=== PATIENT | female | born 1950 ===

== ENCOUNTER 2018-11-26 13:26 | Inpatient (IN) ==
[2018-11-26] MEDS ORDERED: IPRATROPIUM/ALBUTEROL 3 ML AMPUL.NEB NEB ONE ×2 (13:54→15:44)
[2018-11-26] MEDS ORDERED: POTASSIUM CHLORIDE 20 MEQ, MAGNESIUM SULFATE 16.24 MEQ, THIAMINE 100 MG, MVI, ADULT NO.... IV SCH (14:00)
[2018-11-26] MEDS ORDERED: POTASSIUM CHLORIDE 20 MEQ in DEXTROSE 5% IN WATER 250 ML IV ONE (14:24)
--- NOTE | 2018-11-26 14:25 | Emergency Department Note ---
SOB HPI - General Chief Complaint: Shortness of Breath/Dyspnea Stated Complaint: sob, failure to thrive Time Seen by Provider: 11/26/18 13:34 Source: patient Mode of arrival: ambulatory Limitations: no limitations - History of Present Illness 68-year-old female was brought in by her daughters for facial and lip cyanosis with hypoxia this morning down into the 70s. She is a alcoholic and smoker who was recently brought to [facility] after her . She has been accompanying her daughter that lives in [place] and they are visiting the daughter that lives here in [place]. She last drank alcohol and had a beer 3 days ago-she does not want to quit drinking or smoking. The daughters note that she has been hallucinating and had no appetite. She has been lethargic and somnolent. They deny fever chills nausea vomiting. She has chronic diarrhea. No seizure activity although she does have a seizure history Most history is from her daughters although patient does not deny any event and will answer questions of asked directly At this time the patient is a full code although she does not want prolonged life support. She does have a living will/POSLT form - Related Data Home Medications Medication Instructions Recorded Confirmed Aspirin [Phill Chewable Aspirin] 81 mg PO DAILY 11/26/18 11/26/18 Black Cohosh 40 mg PO DAILY 11/26/18 11/26/18 Citalopram [Celexa] 20 mg PO DAILY 11/26/18 11/26/18 Lisinopril [Zestril] 40 mg PO DAILY 11/26/18 11/26/18 Metoprolol Tartrate [Lopressor] 50 mg PO BID 11/26/18 11/26/18 Mirabegron [Myrbetriq] 25 mg PO DAILY 11/26/18 11/26/18 Ranitidine HCl [Acid Refiner Operator] 150 mg PO BID 11/26/18 11/26/18 Allergies Allergy/AdvReac Type Severity Reaction Status Date / Time aspirin AdvReac Intermediate Anaphylaxis Verified 11/26/18 18:51 Review of Systems All systems ED: reviewed and negative except as stated. Past Medical History - Past Medical History Attestation: Yes: The following information was validated with the patient. Medical history: Reports: hypertension, seizures, other (Brain aneurysms which were diagnosed at [facility] in [place], patient declined treatment) Surgical history ED: Reports: other (Chronic diarrhea status post several colon surgeries; ear surgery) - Social History smoking status: Current some day smoker Alcohol use: Reports: Frequently, Daily, Heavy Last drink: days (ago) Physical Exam Very thin cachectic female appearing much older than stated age. Normocephalic atraumatic. Conjunctive are clear sclerae white and anicteric. No nasal discharge or congestion. Oropharynx is pink and moist. Neck is supple without lymphadenopathy thyromegaly. Heart is mildly tachycardic with normal rhythm no murmur appreciated. She is having difficulty moving air, tight breath sounds. Even after breathing treatment she is still having difficulty and requiring significant oxygen up to 15 L. Despite her size I am unable to do hear her breath sounds well especially on the right. Abdomen soft nontender nondistended. No pedal edema. +2 radial pulse. Patient is alert oriented able to answer questions Limitations: no limitations Course Vital Signs Temperature 97.0 F 11/26/18 13:29 Pulse Rate 76 11/26/18 13:29 Respiratory Rate 32 H 11/26/18 13:29 Blood Pressure 97/87 11/26/18 13:29 Pulse Oximetry (%) 71 L 11/26/18 13:29 Temperature 99.8 F H 11/27/18 04:01 Pulse Rate 76 11/27/18 07:20 Respiratory Rate 20 11/27/18 07:20 Blood Pressure 146/80 11/27/18 06:01 Pulse Oximetry (%) 92 11/27/18 06:48 Shortness of Breath/Dyspnea - Lab Data Lab results reviewed: Yes I reviewed the patient's lab results. Result diagrams: 11/27/18 03:50 11/27/18 03:50 Lab Results 11/26/18 11/26/18 11/26/18 Range/Units 14:19 14:19 14:19 WBC 6.9 (4.5-11.0) K/mcL RBC 4.50 (4.00-5.20) M/mcL Hgb 14.3 (12.0-15.0) g/dL Hct 43.2 (36.0-48.0) % POC Hct 46.0 (36.0-48.0) % MCV 96.0 (80.0-100.0) fL MCH 31.7 (26.0-34.0) pg MCHC 33.0 (31.0-36.0) g/dL RDW 16.4 H (11.5-14.5) % Plt Count 167 (140-440) K/mcL MPV 9.5 (7.4-10.4) fL Gran % 69.4 (38.0-78.0) % Lymph % (Auto) 8.2 L (15.5-49.0) % Angelina % (Auto) 22.2 H (1.0-12.0) % Eos % (Auto) 0.2 (0.0-7.0) % Baso % (Auto) 0 (0.0-2.0) % Gran # 4.8 (1.8-8.0) K/mcL Lymph # (Auto) 0.6 L (1.5-4.8) K/mcL Angelina # (Auto) 1.5 H (0.1-0.9) K/mcL Eos # (Auto) 0 (0.0-0.7) K/mcL Baso # (Auto) 0 (0.0-0.3) K/mcL Differential Comment VBG Lactic Acid (0.5-2.0) mmol/L POC Sodium 130 L (133-145) mmol/L Sodium 131 L (133-145) mmol/L POC Potassium 2.7 L* (3.3-5.1) mmol/L Potassium 2.9 L* (3.3-5.1) mmol/L POC Chloride 88 L (96-108) mmol/L Chloride 88 L (96-108) mmol/L Carbon Dioxide 29 (22-30) mmol/L POC Total CO2 30 (22-30) mmol/L Anion Gap 14.0 (8-16) POC BUN 43 H (8-23) mg/dl BUN 52 H (8-23) mg/dl Creatinine 1.4 H (0.6-1.1) mg/dl POC Creatinine 1.6 H (0.6-1.1) mg/dl GFR Calculation 38 Glucose 95 (70-105) mg/dL POC Glucose 96 (70-105) mg/dL Calcium 9.2 (8.6-10.4) mg/dl POC WB Ioniz Calcium 1.12 L (1.16-1.32) mmol/L Magnesium 2.0 (1.6-2.5) mg/dL Total Bilirubin 0.4 (0.0-1.0) mg/dL AST 28 (0-37) U/l ALT 14 (0-40) U/l Alkaline Phosphatase 72 (39-117) U/L Troponin T < 0.01 (0-0.03) ng/ml Total Protein 6.9 (5.9-8.4) gm/dL Albumin 2.8 L (3.2-5.2) gm/dL Globulin 4.1 H (2.2-3.7) gm/dL Albumin/Globulin Ratio 0.7 L (1.0-2.3) Urine Color Urine Appearance Urine pH (5.0-9.0) Ur Specific [place] (1.000-1.035) Urine Protein (NEG) mg/dL Urine Glucose (UA) (NEG) mg/dL Urine Ketones (NEG) mg/dL Urine Occult Blood (<0.03) mg/dL Urine Nitrate (NEG) Urine Bilirubin (NEG) mg/dL Urine Urobilinogen (NEG) mg/dL Ur Leukocyte Esterase (NEG) /uL Urine RBC (0-1) /hpf Urine WBC (0-4) /hpf Ur Squamous Epith Cells (0-4) /hpf Amorphous Crystals (0) /hpf Urine Bacteria (0) /hpf Hyaline Casts (0-2) /lpf Granular Casts (0) /lpf Urine Mucus (0) /hpf Ur Culture Indicated? Mycoplasma pneumon IgM (NEGATIVE) Ur Strep pneumoniae Ag (NEGATIVE) 11/26/18 11/26/18 11/26/18 Range/Units 14:20 15:46 15:46 WBC (4.5-11.0) K/mcL RBC (4.00-5.20) M/mcL Hgb (12.0-15.0) g/dL Hct (36.0-48.0) % POC Hct (36.0-48.0) % MCV (80.0-100.0) fL MCH (26.0-34.0) pg MCHC (31.0-36.0) g/dL RDW (11.5-14.5) % Plt Count (140-440) K/mcL MPV (7.4-10.4) fL Gran % (38.0-78.0) % Lymph % (Auto) (15.5-49.0) % Angelina % (Auto) (1.0-12.0) % Eos % (Auto) (0.0-7.0) % Baso % (Auto) (0.0-2.0) % Gran # (1.8-8.0) K/mcL Lymph # (Auto) (1.5-4.8) K/mcL Angelina # (Auto) (0.1-0.9) K/mcL Eos # (Auto) (0.0-0.7) K/mcL Baso # (Auto) (0.0-0.3) K/mcL Differential Comment VBG Lactic Acid 1.2 (0.5-2.0) mmol/L POC Sodium (133-145) mmol/L Sodium (133-145) mmol/L POC Potassium (3.3-5.1) mmol/L Potassium (3.3-5.1) mmol/L POC Chloride (96-108) mmol/L Chloride (96-108) mmol/L Carbon Dioxide (22-30) mmol/L POC Total CO2 (22-30) mmol/L Anion Gap (8-16) POC BUN (8-23) mg/dl BUN (8-23) mg/dl Creatinine (0.6-1.1) mg/dl POC Creatinine (0.6-1.1) mg/dl GFR Calculation Glucose (70-105) mg/dL POC Glucose (70-105) mg/dL Calcium (8.6-10.4) mg/dl POC WB Ioniz Calcium (1.16-1.32) mmol/L Magnesium (1.6-2.5) mg/dL Total Bilirubin (0.0-1.0) mg/dL AST (0-37) U/l ALT (0-40) U/l Alkaline Phosphatase (39-117) U/L Troponin T (0-0.03) ng/ml Total Protein (5.9-8.4) gm/dL Albumin (3.2-5.2) gm/dL Globulin (2.2-3.7) gm/dL Albumin/Globulin Ratio (1.0-2.3) Urine Color Yellow Urine Appearance Clear Urine pH 6.0 (5.0-9.0) Ur Specific [place] 1.018 (1.000-1.035) Urine Protein 30 A (NEG) mg/dL Urine Glucose (UA) Negative (NEG) mg/dL Urine Ketones Neg (NEG) mg/dL Urine Occult Blood 0.2 A (<0.03) mg/dL Urine Nitrate Neg (NEG) Urine Bilirubin Neg (NEG) mg/dL Urine Urobilinogen Neg (NEG) mg/dL Ur Leukocyte Esterase Neg (NEG) /uL Urine RBC 6 H (0-1) /hpf Urine WBC 2 (0-4) /hpf Ur Squamous Epith Cells 1 (0-4) /hpf Amorphous Crystals Few A (0) /hpf Urine Bacteria 0 (0) /hpf Hyaline Casts 2 (0-2) /lpf Granular Casts 3 H (0) /lpf Urine Mucus Few (0) /hpf Ur Culture Indicated? No Mycoplasma pneumon IgM Negative (NEGATIVE) Ur Strep pneumoniae Ag (NEGATIVE) 11/26/18 Range/Units 15:46 WBC (4.5-11.0) K/mcL RBC (4.00-5.20) M/mcL Hgb (12.0-15.0) g/dL Hct (36.0-48.0) % POC Hct (36.0-48.0) % MCV (80.0-100.0) fL MCH (26.0-34.0) pg MCHC (31.0-36.0) g/dL RDW (11.5-14.5) % Plt Count (140-440) K/mcL MPV (7.4-10.4) fL Gran % (38.0-78.0) % Lymph % (Auto) (15.5-49.0) % Angelina % (Auto) (1.0-12.0) % Eos % (Auto) (0.0-7.0) % Baso % (Auto) (0.0-2.0) % Gran # (1.8-8.0) K/mcL Lymph # (Auto) (1.5-4.8) K/mcL Angelina # (Auto) (0.1-0.9) K/mcL Eos # (Auto) (0.0-0.7) K/mcL Baso # (Auto) (0.0-0.3) K/mcL Differential Comment VBG Lactic Acid (0.5-2.0) mmol/L POC Sodium (133-145) mmol/L Sodium (133-145) mmol/L POC Potassium (3.3-5.1) mmol/L Potassium (3.3-5.1) mmol/L POC Chloride (96-108) mmol/L Chloride (96-108) mmol/L Carbon Dioxide (22-30) mmol/L POC Total CO2 (22-30) mmol/L Anion Gap (8-16) POC BUN (8-23) mg/dl BUN (8-23) mg/dl Creatinine (0.6-1.1) mg/dl POC Creatinine (0.6-1.1) mg/dl GFR Calculation Glucose (70-105) mg/dL POC Glucose (70-105) mg/dL Calcium (8.6-10.4) mg/dl POC WB Ioniz Calcium (1.16-1.32) mmol/L Magnesium (1.6-2.5) mg/dL Total Bilirubin (0.0-1.0) mg/dL AST (0-37) U/l ALT (0-40) U/l Alkaline Phosphatase (39-117) U/L Troponin T (0-0.03) ng/ml Total Protein (5.9-8.4) gm/dL Albumin (3.2-5.2) gm/dL Globulin (2.2-3.7) gm/dL Albumin/Globulin Ratio (1.0-2.3) Urine Color Urine Appearance Urine pH (5.0-9.0) Ur Specific [place] (1.000-1.035) Urine Protein (NEG) mg/dL Urine Glucose (UA) (NEG) mg/dL Urine Ketones (NEG) mg/dL Urine Occult Blood (<0.03) mg/dL Urine Nitrate (NEG) Urine Bilirubin (NEG) mg/dL Urine Urobilinogen (NEG) mg/dL Ur Leukocyte Esterase (NEG) /uL Urine RBC (0-1) /hpf Urine WBC (0-4) /hpf Ur Squamous Epith Cells (0-4) /hpf Amorphous Crystals (0) /hpf Urine Bacteria (0) /hpf Hyaline Casts (0-2) /lpf Granular Casts (0) /lpf Urine Mucus (0) /hpf Ur Culture Indicated? Mycoplasma pneumon IgM (NEGATIVE) Ur Strep pneumoniae Ag Negative (NEGATIVE) Arterial blood gases pH is 7.43 PCO2 53 PO2 of 82 on 15 L nonrebreather mask Flu swab was negative - Radiology Data Radiology results reviewed: Yes I reviewed the patient's radiology results. Chest x-ray shows massive right-sided infiltrate encompassing entire right side. CT scan without contrast was ordered without contrast secondary to concerns for elevated creatinine. She does not have a history of kidney disease. Anyways CT scan showed patchy infiltrate with right-sided aspiration pneumonia versus ARDS - EKG Data EKG attestation: Yes I reviewed and interpreted this EKG. EKG results narrative: EKG was done which shows a rate of 70 low voltage leads consistent with her pulmonary disease. I do not see evidence of ischemia. A lot of artifact limits utility of this study Critical Care Time Critical Care Time: Yes Attestation: 30 minutes critical care time which did not include initial evaluation and management nor procedures. I was immediately available to this patient entire time of her hospital stay. My critical care time includes reevaluation, discussion with family, care coordination and documentation Disposition Pt seen by HOTHOUSE WORKER/PA only: No Clinical Impression: Hypokalemia Respiratory failure with hypoxia and hypercapnia Qualifiers: Chronicity: acute Qualified Code(s): J96.01 - Acute respiratory failure with hypoxia Kidney failure Qualifiers: Renal failure chronicity: unspecified chronicity Qualified Code(s): N19 - Unspecified kidney failure Pneumonia Qualifiers: Pneumonia type: due to unspecified organism Laterality: right Lung location: unspecified part of lung Qualified Code(s): J18.9 - Pneumonia, unspecified organism Summary: Patient was initially started on oxygen and workup initiated She is having significant trouble breathing suspect pneumonia. Chest x-ray confirms and CT to follow but this is limited by her elevated creatinine. She does not have a history of kidney disease this is likely secondary to dehydrat ion. Because of her alcoholism concern for DTs also comes in to play. She does seem relatively fragile IV fluids were started along with antibiotics after getting cultures. I was able to turn her oxygen levels down to 5 L and saturations remained in the 90s After getting workup I discussed the case with Dr. Little, the hospitalist who agreed to accept the patient for further care and evaluation in the ICU. I did discuss with the patient the possibility of having to intubate her or use BiPAP and she was agreeable to this-she is critical ill Disposition: Xfer As Inpt ([facility]) Condition: Fair
[2018-11-26] MEDS ORDERED: [UNRECOGNIZED DRUG - REMARK] IV SCH ×2 (14:30→18:31)
[2018-11-26 15:28] LABS: ALT/SGPT 14 U/l (0-40); Albumin 2.8 gm/dL (3.2-5.2); Albumin/Globulin Ratio 0.7 (1.0-2.3); Alkaline Phosphatase 72 U/L (39-117); Blood Urea Nitrogen 52 mg/dl (8-23)
[2018-11-26 15:34] LABS: Basophils # (Auto) 0 K/mcL (0.0-0.3); Basophils % (Auto) 0 % (0.0-2.0); Eosinophils # (Auto) 0 K/mcL (0.0-0.7); Eosinophils % (Auto) 0.2 % (0.0-7.0); Granulocytes % (Auto) 69.4 % (38.0-78.0); Lymphocytes # (Auto) 0.6 K/mcL (1.5-4.8); Lymphocytes % (Auto) 8.2 % (15.5-49.0); Monocytes # (Auto) 1.5 K/mcL (0.1-0.9); Monocytes % (Auto) 22.2 % (1.0-12.0); Platelet Count 167 K/mcL (140-440); Red Cell Distribution Width 16.4 % (11.5-14.5)
[2018-11-26] MEDS ORDERED: PIPERACILLIN SODIUM/TAZOBACTAM 3.375 GM in DEXTROSE 5% IN WATER 50 ML IV ONE (15:34)
[2018-11-26] MEDS ORDERED: 0.9 % SODIUM CHLORIDE 1,000 ML IV ONE ×2 (15:43→16:14)
[2018-11-26] MEDS ORDERED: methylPREDNISolone SOD SUCC 125 MG/2 ML VIAL IV ONE (16:23)
[2018-11-26 16:36] LABS: Appearance,Urine CLEAR; Bacteria,Urine 0 /hpf (0); Bilirubin,Urine NEG (NEG); Color,Urine YELLOW; Glucose,Urine (UA) NEGATIVE (NEG); Leukocyte Esterase,Urine NEG /uL (NEG); Mucus,Urine FEW /hpf (0); Protein,Urine 30 mg/dL (NEG); Specific Gravity,Urine 1.018 (1.000-1.035); Urine Amorphous Crystals FEW /hpf (0); Urine Blood 0.2 mg/dL (<0.03); Urine Granular Cast 3 /lpf (0); Urine Hyaline Cast 2 /lpf (0-2); Urine RBC 6 /hpf (0-1); Urine Squamous Epithelial Cell 1 /hpf (0-4); Urine WBC 2 /hpf (0-4); Urobilinogen,Urine NEG (NEG)
--- NOTE | 2018-11-26 17:33 | Cat Scan Report ---
CLINICAL INFORMATION: Shortness of breath cough. History of smoking COMPARISON: None TECHNIQUE: 0.625 mm axial slices were obtained from the lung apices through the bases without intravenous contrast. 2.5 mm Sagittal, coronal and axial reformatted images were processed and reviewed at bone, lung and soft tissue windows. 7 mm axial MIP images were also reconstructed to optimize pulmonary nodule detection.The exam was performed using radiation dose optimization techniques including, but not limited to, automated exposure control, adjustment of the mA and/or kV according to patient size and use of iterative reconstruction technique. FINDINGS: Pulmonary parenchymal windows show large patchy alveolar infiltrate in the right lower lobe with moderate patchy infiltrates in the right middle, posterior segment right upper lobe and smaller patchy infiltrates in the left lower lobe segment and the posterior segment left upper lobe. No effusions. Mediastinal windows show the heart is mildly enlarged with moderate calcific plaque in the proximal circumflex and LAD coronary arteries. The central pulmonary arteries are enlarged: main pulmonary diameter is 3.2 cm suggesting pulmonary hypertension related to COPD. Thoracic aorta is normal in contour and caliber. A few calcified lymph nodes noted in the lower mediastinum compatible with old granulomatous disease. Esophagus is normal. Thyroid is diminutive. Bone windows show malunified old fracture of the upper sternal body - no other osseous abnormalities. Images through the superior abdomen show only a 3 cm simple cyst in the superior left kidney. IMPRESSION: 1. Large patchy alveolar infiltrates throughout the right lower lobe with moderate patchy infiltrates in the right middle lobe, posterior segment right upper lobe and smaller infiltrates in the left lower lobe and posterior segment left upper lobe. Findings suspicious for aspiration or, less likely, atypical ARDS or infection 2. Moderate chronic bronchitis - likely related to smoking 3. Enlargement central pulmonary pulmonary arteries compatible with pulmonary hypertension related to COPD. 4. Diminutive thyroid. Please correlate with TSH and thyroid hormone levels Interpreted and Authenticated by: Gilberto Marin 11/26/18
--- NOTE | 2018-11-26 17:44 | Internal Med History&Physical ---
Medical - H&P: HPI Patient information: Note initiated : 11/26/18 at 5:41 pm Service Date, if different from initiated Date: [] Patient: Syeda Salamanca a 68 y/o F admitted on for sob, failure to thrive. Chief Complaint: [] History of present illness: Ms. Salamanca is a 68 year old F with history of heavy alcohol use, presents to the hospital brought in by daughters for evaluation of shortness of breath. The patient was at baseline status approximately a week ago. On Wednesday she ate I believe she can also and had some vomiting. Since the Wednesday the patient has been having shortness of breath, cough with yellow sputum and fatigue. The patient denies any fever but has had some chills. The patient has had prog ressive decline in her respiratory condition. Yesterday she was noted by her daughter to be hallucinating. The patient's last drink was on Wednesday. The patient has history of heavy alcohol use, drinks 4-5 beers a day, and has a history of withdrawal when not using alcohol. This morning the family found the patient was in respiratory distress, lips and face turning blue and therefore she was brought to the hospital for further management. The patient denies any other acute complaints or concerns. In the emergency room on presentation patient was afebrile temperature 97, heart rate 71 blood pressure 97/87 and she was breathing 32 breaths/min O2 saturation 71 on 15 L of oxygen. Chest x-ray showed right lobar pneumonia, EKG shows sinus rhythm incomplete right very much block Labs show WBC count of 6.9 hemoglobin 14 platelets 167 lactic acid 1.2 sodium 131 potassium 2.9 bicarbonate 29 creatinine 1.4 glucose 95 albumin 2.8 UA was pending ABG done shows pH of 7.43 PCO2 53 PO2 82 on 15 L of oxygen. Patient was given bronchodilators, IV antibiotics and blood cultures were sent patient's condition improved however she still needs 5-6 L of oxygen to maintain her respiratory status. She is being admitted to the hospital for further management The patient is usually a resident of [place], her February this year and her daughters brought her to live with them. I believe the daughter lives in [place] and she has 1 daughter here in the [place]. They were here to visit but her condition acutely worsened and therefore she came to this facility. There are no previous records in this hospital. On talking with the daughter it seems the patient was admitted with a history of seizures and they found that she has SALES AND CATERING COORDINATOR aneurysms and she has refused intervention for same. The patient does wish to be full code All systems: reviewed and no additional remarkable complaints except as stated (As per HPI rest negative) Medical - H&P: PMH Medical history: Hypertension Depression Overactive bladder GERD History of CA uterus Aneurysm SALES AND CATERING COORDINATOR Heavy alcohol use Seizure disorder Surgical history: History of ear surgeries Hysterectomy History of volvulus of the stomach Pertinent family history: Father and mother both had CVA, father had myocardial infarction other had some cancer ovarian or uterine Social history: Heavy alcohol use reported, history of withdrawal if not consuming alcohol Still smokes 5-6 cigarettes a day Denies any recreational drug use Medical - H&P: Meds Home Medications Medication Instructions Recorded Confirmed Type Aspirin [Phill Chewable Aspirin] 81 mg PO DAILY 11/26/18 11/26/18 History Black Cohosh 40 mg PO DAILY 11/26/18 11/26/18 History Citalopram [Celexa] 20 mg PO DAILY 11/26/18 11/26/18 History Lisinopril [Zestril] 40 mg PO DAILY 11/26/18 11/26/18 History Metoprolol Tartrate [Lopressor] 50 mg PO BID 11/26/18 11/26/18 History Mirabegron [Myrbetriq] 25 mg PO DAILY 11/26/18 11/26/18 History Ranitidine HCl [Acid Air Pollution Compliance Inspector] 150 mg PO BID 11/26/18 11/26/18 History Allergies Allergy/AdvReac Type Severity Reaction Status Date / Time aspirin Allergy Intermediate Anaphylaxis Verified 11/26/18 13:37 Medical - H&P: Exam - Constitutional Vitals: Temp Pulse Resp BP Pulse Ox 97.0 F 81 22 124/73 97 11/26/18 13:29 11/26/18 17:35 11/26/18 17:35 11/26/18 17:33 11/26/18 17:35 Exam: GENERAL: The patient is a thin frail old lady, in mild respiratory distress. She is alert and oriented x3. VITAL SIGNS: Reviewed and as noted elsewhere. HEENT: Head is normocephalic and atraumatic. Extraocular muscles are intact. Pupils are equal, round, and reactive to light. Nares appeared normal. Mouth appears any without lesions. Mucous membranes are dry NECK: Normal to inspection, Supple, No lymphadenopathy or thyromegaly. LUNGS: Air entry equal on both sides, mild expiratory wheezing, decreased air entry bilaterally, prolonged expiratory phase. No accessory muscles of respirat ion HEART: Regular rate and rhythm normal, S1 and S2 heard, no Gallop, S3 or Rub Noted, No Gross murmur heard. ABDOMEN: Soft, nontender, and nondistended. Positive bowel sounds. No hepatosplenomegaly was noted. EXTREMITIES: No cyanosis, clubbing, rash, lesions or edema. NEUROLOGIC: Cranial nerves II through XII are grossly intact. Motor and Sensory System Grossly Intact PSYCHIATRIC: Normal affect, Normal Mood. She appears anxious SKIN: No ulceration or wounds noted, No jaundice, No rash noted. Medical - H&P: Reslt - Labs CBC & Chem 7: 11/26/18 14:19 11/26/18 14:19 Labs: Short CBC 11/26/18 Range/Units 14:19 WBC 6.9 (4.5-11.0) K/mcL Hgb 14.3 (12.0-15.0) g/dL Hct 43.2 (36.0-48.0) % Plt Count 167 (140-440) K/mcL BMP 11/26/18 14:19 Sodium 131 L Potassium 2.9 L* Chloride 88 L Carbon Dioxide 29 BUN 52 H Creatinine 1.4 H Glucose 95 Calcium 9.2 Cardiac Enzymes 11/26/18 Range/Units 14:19 Troponin T < 0.01 (0-0.03) ng/ml Liver Function 11/26/18 Range/Units 14:19 Total Bilirubin 0.4 (0.0-1.0) mg/dL AST 28 (0-37) U/l ALT 14 (0-40) U/l Alkaline Phosphatase 72 (39-117) U/L Albumin 2.8 L (3.2-5.2) gm/dL Urine 11/26/18 Range/Units 15:46 Urine Color Yellow Urine Appearance Clear Urine pH 6.0 (5.0-9.0) Ur Specific [place] 1.018 (1.000-1.035) Urine Protein 30 A (NEG) mg/dL Urine Glucose (UA) Negative (NEG) mg/dL Medical - H&P: A/P - Narrative A/P Narrative: A/P Acute hypoxic/Hypercapenic Respiratory failure Pneumonia, Acute kidney injury Hypokalemia Malnutrition, albumin 2.8 Alcoholism GERD Depression Grief due to loss of Overactive bladder Sizure disorder Plan Admit to PCU status monitor resp status, BIPAP if needed IV zosyn and zithromax, send urine Legionella mycoplasma and strep antigen. Sputum and blood cultures have been sent check for MRSA if positive start the patient on vancomycin. Sent respiratory viral panel. Hold blood pressure medications IV fluids for management of sepsis as well as renal failure. Patient does not wish to quit alcohol, will give patient beer with meals to avoid alcohol withdrawal, if any signs of withdrawal will initiate ciwa, I am hoping to avoid withdrawal. Patient medications for depression overactive bladder. Patient does not take any seizure medications has not had seizures for many years. Replace elect lites aggressively DVT heparin subcu Regular diet Full code
--- NOTE | 2018-11-26 17:58 | XRay Report ---
CLINICAL INFORMATION: dyspnea COMPARISON: None. FINDINGS: The heart is mildly enlarged. Mediastinum is unremarkable. Moderate patchy infiltrate throughout the right lung, with prominence of the lower lobe region, noted. Left lung appears clear on plain film. Underlying chronic bronchitis changes noted. No effusion. IMPRESSION: Moderate patchy infiltrate throughout the right lung - predominantly right lower lobe. Follow-up CT performed Interpreted and Authenticated by: Gilberto Marin 11/26/18
[2018-11-26] MEDS ORDERED: AZITHROMYCIN 500 MG in DEXTROSE 5% IN WATER 250 ML IV SCH (18:31)
[2018-11-26] MEDS ORDERED: NALOXONE HCL 0.4 MG/ML VIAL IV PRN (18:31)
[2018-11-26] MEDS ORDERED: ONDANSETRON 4 MG/2 ML VIAL IV PRN (18:31)
[2018-11-26] MEDS ORDERED: POTASSIUM CHLORIDE 20 MEQ TABLET PO ONE (18:31)
[2018-11-26] MEDS ORDERED: ACETAMINOPHEN 325 MG TABLET PO PRN (18:31)
[2018-11-26] MEDS ORDERED: HYDROmorphone 2 MG/ML VIAL IV PRN (18:31)
[2018-11-26] MEDS: PIPERACILLIN SODIUM/TAZOBACTAM 3.375 GM in DEXTROSE 5% IN WATER 50 ML IV SCH ×2 (19:16→21:52)
[2018-11-26] MEDS: IPRATROPIUM/ALBUTEROL 3 ML AMPUL.NEB NEB SCH ×2 (19:40→23:20)
[2018-11-26] MEDS ORDERED: FOLIC ACID/VITAMIN B COMP W-C 1 TAB TABLET PO SCH (21:00)
[2018-11-26] MEDS ORDERED: THIAMINE 100 MG TABLET PO SCH (21:00)
[2018-11-26] MEDS: HEPARIN 5,000 UNIT/ML VIAL SQ SCH (21:39)
[2018-11-26] MEDS: 0.9 % SODIUM CHLORIDE 10 ML SYRINGE IV SCH (21:39)
[2018-11-27] MEDS: IPRATROPIUM/ALBUTEROL 3 ML AMPUL.NEB NEB SCH ×6 (02:57→23:25)
[2018-11-27] MEDS: PIPERACILLIN SODIUM/TAZOBACTAM 3.375 GM in DEXTROSE 5% IN WATER 50 ML IV SCH ×4 (02:58→18:30)
[2018-11-27 05:28] LABS: Basophils # (Auto) 0 K/mcL (0.0-0.3); Basophils % (Auto) 0 % (0.0-2.0); Eosinophils # (Auto) 0 K/mcL (0.0-0.7); Eosinophils % (Auto) 0.4 % (0.0-7.0); Granulocytes % (Auto) 89.5 % (38.0-78.0); Lymphocytes # (Auto) 0.3 K/mcL (1.5-4.8); Lymphocytes % (Auto) 4.3 % (15.5-49.0); Mean Cell Volume 96.9 fL (80.0-100.0); Mean Corpuscular HGB Conc 32.6 g/dL (31.0-36.0); Monocytes # (Auto) 0.4 K/mcL (0.1-0.9); Monocytes % (Auto) 5.8 % (1.0-12.0); Platelet Count 178 K/mcL (140-440); RBC 3.82 M/mcL (4.00-5.20); Red Cell Distribution Width 16.6 % (11.5-14.5)
[2018-11-27 05:52] LABS: ALT/SGPT 11 U/l (0-40); Albumin 2.3 gm/dL (3.2-5.2); Albumin/Globulin Ratio 0.7 (1.0-2.3); Alkaline Phosphatase 62 U/L (39-117); Bilirubin,Direct < 0.2 mg/dL (0.0-0.3); Blood Urea Nitrogen 31 mg/dl (8-23); Gamma Glutamyl Transpeptidase 9 U/L (5-36)
[2018-11-27] MEDS: 0.9 % SODIUM CHLORIDE 10 ML SYRINGE IV SCH ×4 (05:53→20:47)
[2018-11-27] MEDS ORDERED: PANTOPRAZOLE 40 MG TABLET PO SCH (07:30)
[2018-11-27] MEDS ORDERED: predniSONE 20 MG TABLET PO SCH (08:00)
[2018-11-27] MEDS ORDERED: CITALOPRAM 20 MG TABLET PO SCH (09:00)
[2018-11-27] MEDS ORDERED: AZITHROMYCIN 250 MG TABLET PO SCH (09:00)
[2018-11-27] MEDS ORDERED: BLACK COHOSH 40 MG PO SCH (09:00)
[2018-11-27] MEDS ORDERED: OSELTAMIVIR PHOSPHATE 30 MG PO SCH (09:00)
[2018-11-27] MEDS ORDERED: ASPIRIN 81 MG TAB.CHEW PO SCH (09:00)
[2018-11-27] MEDS: HEPARIN 5,000 UNIT/ML VIAL SQ SCH ×2 (09:22→20:47)
[2018-11-27] MEDS ORDERED: POTASSIUM PHOSPHATE 40 MEQ in DEXTROSE 5% IN WATER 500 ML IV ONE (10:00)
[2018-11-27] MEDS ORDERED: NALOXONE HCL 0.4 MG/ML VIAL IV PRN (12:46)
[2018-11-27] MEDS ORDERED: ONDANSETRON 4 MG/2 ML VIAL IV PRN (12:46)
[2018-11-27] MEDS ORDERED: ACETAMINOPHEN 325 MG TABLET PO PRN (12:46)
[2018-11-27] MEDS ORDERED: HYDROmorphone 2 MG/ML VIAL IV PRN (12:46)
--- NOTE | 2018-11-27 15:50 | Internal Med Progress Note ---
Medical - PN: Subj Patient information: Note initiated : 11/27/18 at 3:48 pm Service Date, if different from initiated Date: [] Patient: Syeda Salamanca a 68 y/o F admitted on 11/26/18 for sob, failure to thrive. Chief Complaint: [] Interval history: Ms. Salamanca is a 68 year old F with history of heavy alcohol use, presents to the hospital brought in by daughters for evaluation of shortness of breath. The patient was at baseline status approximately a week ago. On Wednesday she ate I believe she can also and had some vomiting. Since the Wednesday the patient has been having shortness of breath, cough with yellow sputum and fatigue. The patient denies any fever but has had some chills. The patient has had progre ssive decline in her respiratory condition. Yesterday she was noted by her daughter to be hallucinating. The patient's last drink was on Wednesday. The patient has history of heavy alcohol use, drinks 4-5 beers a day, and has a history of withdrawal when not using alcohol. This morning the family found the patient was in respiratory distress, lips and face turning blue and therefore she was brought to the hospital for further management. The patient denies any other acute complaints or concerns. In the emergency room on presentation patient was afebrile temperature 97, heart rate 71 blood pressure 97/87 and she was breathing 32 breaths/min O2 saturation 71 on 15 L of oxygen. Chest x-ray showed right lobar pneumonia, EKG shows sinus rhythm incomplete right very much block Labs show WBC count of 6.9 hemoglobin 14 platelets 167 lactic acid 1.2 sodium 131 potassium 2.9 bicarbonate 29 creatinine 1.4 glucose 95 albumin 2.8 UA was pending ABG done shows pH of 7.43 PCO2 53 PO2 82 on 15 L of oxygen. Patient was given bronchodilators, IV antibiotics and blood cultures were sent patient's condition improved however she still needs 5-6 L of oxygen to maintain her respiratory status. She is being admitted to the hospital for further management The patient is usually a resident of [place], her February this year and her daughters brought her to live with them. I believe the daughter lives in [place] and she has 1 daughter here in the [place]. They were here to visit but her condition acutely worsened and therefore she came to this facility. There are no previous records in this hospital. 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 The patient does wish to be full code 11/27 Patient seen and examined, no acute overnight events. Has a low-grade temperature still. Sputum culture is growing possible pneumococcus. Influenza test positive. Tamiflu added Patient is otherwise doing well stable respiratory needs. Does have some tremors, getting alcohol with meals Pertinent ROS: Denies headache, dizziness Denies chest pain, palpitations Cough and shortness of breath present Denies abdominal pain, nausea or vomiting. - Constitutional Vitals: Vital Signs Temp Pulse Resp BP Pulse Ox 99.3 F H 85 21 135/79 97 11/27/18 12:01 11/27/18 15:17 11/27/18 15:17 11/27/18 12:01 11/27/18 15:17 Period Temp Pulse Resp BP Sys/Bartlett Pulse Ox Last 24 Hr 98.5 F-99.8 F 70-107 15-30 110-146/69-91 90-100 Intake and Output 11/27/18 11/27/18 11/27/18 05:59 13:59 21:59 Intake Total 200 / 3479 860 / 1369.0909 509.0909 / 1369.0909 Output Total 500 / 700 150 / 150 Balance -300 / 2779 710 / 1219.0909 509.0909 / 1219.0909 Intake & Output: Intake & Output 11/27/18 11/27/18 11/27/18 05:59 13:59 21:59 Intake Total 200 / 3479 860 / 1369.0909 509.0909 / 1369.0909 Output Total 500 / 700 150 / 150 Balance -300 / 2779 710 / 1219.0909 509.0909 / 1219.0909 Intake: IV 80 / 3359 50 / 559.0909 509.0909 / 559.0909 Zosyn 3.375 gm In Dextrose 5% 80 / 80 50 / 50 in Water 50 ml @ 100 mls/hr IV Q6H [facility] Rx#:[id number] Potassium Phosphate 40 Meq In 509.0909 / 509.0909 Dextrose 5% in Water 500 ml @ 127.273 mls/hr IV ONCE ONE Rx#: [id number] Oral 120 / 120 810 / 810 Output: Urine Catheter Amount 500 / 700 150 / 150 Other: Meal Lunch Percent of Meal Consumed bites Feeding Ability Independent Urine Appearance Clear Clear Uretheral (Ceron) Clear Urine Color Dark Angella Bright Yellow Uretheral (Ceron) Bright Yellow Exam: Constitutional; Afebrile, cooperative, alert, not in distress. Respiratory system: Air Entry equal on both sides, inspiratory crackles at bases, no wheezing noted CVS- Rate rhythm regular, S1,S2 heard, no gallop, no rub. Abdomen- Soft nontender abdomen, no organomegaly, no tenderness, no guarding or rigidity, RESEARCH TEST ENGINE OPERATOR- AOOx3, moving all extremities, no gross focal deficit noted. coarse tremors present Medical - PN: Obj Da - Labs CBC & Chem 7: 11/27/18 03:50 11/27/18 03:50 Labs: Abnormal Lab Results 11/27/18 11/27/18 11/26/18 03:50 03:50 15:46 RBC 3.82 L RDW 16.6 H Gran % 89.5 H Lymph % (Auto) 4.3 L Ward % (Auto) Lymph # (Auto) 0.3 L Ward # (Auto) POC Sodium Sodium POC Potassium Potassium POC Chloride Chloride POC BUN BUN 31 H Creatinine POC Creatinine Glucose 164 H Calcium 8.1 L POC WB Ioniz Calcium Phosphorus 1.7 L Total Protein 5.8 L Albumin 2.3 L Globulin Albumin/Globulin Ratio 0.7 L Urine Protein 30 A Urine Occult Blood 0.2 A Urine RBC 6 H Amorphous Crystals Few A Granular Casts 3 H 11/26/18 11/26/18 14:19 14:19 RBC RDW 16.4 H Gran % Lymph % (Auto) 8.2 L Ward % (Auto) 22.2 H Lymph # (Auto) 0.6 L Ward # (Auto) 1.5 H POC Sodium 130 L Sodium 131 L POC Potassium 2.7 L* Potassium 2.9 L* POC Chloride 88 L Chloride 88 L POC BUN 43 H BUN 52 H Creatinine 1.4 H POC Creatinine 1.6 H Glucose Calcium POC WB Ioniz Calcium 1.12 L Phosphorus Total Protein Albumin 2.8 L Globulin 4.1 H Albumin/Globulin Ratio 0.7 L Urine Protein Urine Occult Blood Urine RBC Amorphous Crystals Granular Casts Meds: Medications Acetaminophen (Tylenol) 650 mg PO Q4-6HP PRN PRN Reason: PAIN/FEVER > 101 Albuterol/Ipratropium (Duoneb) 3 ml NEB Q4HRT [facility] Last Admin: 11/27/18 15:15 Dose: 3 ml Documented by: Aspirin (Aspirin) 81 mg PO DAILY [facility] Azithromycin (Zithromax) 250 mg PO DAILY [facility] Stop: 11/29/18 09:01 Citalopram Hydrobromide (Celexa) 20 mg PO DAILY [facility] Heparin Sodium (Porcine) (Heparin) 5,000 unit SQ Q12 [facility] Hydromorphone HCl (Dilaudid) 0.5 mg IV Q2HP PRN PRN Reason: PAIN LEVEL > 6 Piperacillin Sod/Tazobactam (Sod 3.375 gm/ Dextrose) 50 mls @ 100 mls/hr IV Q6H [facility] Last Admin: 11/27/18 13:52 Dose: 100 mls/hr Documented by: Multivit/Ca Carb/B Cmplx/FA/Prenat (Diatx) 1 tab PO HS [facility] Naloxone HCl (Narcan) 0.1 mg IV Q2MIN PRN PRN Reason: Opiate Reversal Oseltamivir Phosphate 30 Mg Oral Solution 1 dose PO DAILY [facility] Ondansetron HCl (Zofran) 4 mg IV Q4-6HP PRN PRN Reason: Nausea And Vomiting Pantoprazole Sodium (Protonix) 40 mg PO QAMAC [facility] Mirabegron [ Myrbetriq] 25 Mg Tablet 1 dose PO DAILY [facility]) [facility] Sodium Chloride (Saline Flush) 10 ml IV Q8 [facility] Last Admin: 11/27/18 13:53 Dose: 10 ml Documented by: Thiamine HCl (Vitamin B1) 100 mg PO [facility] Medical - PN: A/P - Time Spent With Patient Total time spent is greater than 50% in coordination of care (as documented) at patient's floor/unit and/or counseling patient: - Narrative A/P Narrative: A/P Acute hypoxic/Hypercapenic Respiratory failure Pneumonia, Influenzae pneumonia Acute kidney injury Hypokalemia Malnutrition, albumin 2.8 Alcoholism GERD Depression Grief due to loss of Overactive bladder Sizure disorder Plan xfer to tele status monitor resp status, BIPAP if needed started on tamiflu for now, mrsa swab is neg, and pt responding to present treatment hence vanco not added contniue IV zosyn and zithromax, urine mycoplasma and strep antigen, neg, legionenalla pending Sputum and blood cultures have been sent, possible pne umococcus present . Hold blood pressure medications IV fluids for management of sepsis as well as renal failure. Renal function is improving. Patient does not wish to quit alcohol, will give patient beer with meals to avoid alcohol withdrawal, if any signs of withdrawal will initiate ciwa, I am hoping to avoid withdrawal. resume Patient medications for depression overactive bladder. Patient does not take any seizure medications has not had seizures for many years. Replace electrolytes aggressively DVT heparin subcu Regular diet Full code Medical - PN: Qual - VTE Deep Vein Thrombosis/Pulmonary Embolism Present on Admission: No
[2018-11-27] MEDS ORDERED: FOLIC ACID/VITAMIN B COMP W-C 1 TAB TABLET PO SCH (21:00)
[2018-11-27] MEDS ORDERED: THIAMINE 100 MG TABLET PO SCH (21:00)
[2018-11-28] MEDS: PIPERACILLIN SODIUM/TAZOBACTAM 3.375 GM in DEXTROSE 5% IN WATER 50 ML IV SCH ×2 (02:26→06:08)
[2018-11-28] MEDS: IPRATROPIUM/ALBUTEROL 3 ML AMPUL.NEB NEB SCH ×6 (03:32→22:51)
[2018-11-28] MEDS: 0.9 % SODIUM CHLORIDE 10 ML SYRINGE IV SCH ×5 (06:09→21:25)
[2018-11-28 06:54] LABS: Basophils # (Auto) 0 K/mcL (0.0-0.3); Basophils % (Auto) 0 % (0.0-2.0); Eosinophils # (Auto) 0 K/mcL (0.0-0.7); Eosinophils % (Auto) 0 % (0.0-7.0); Granulocytes % (Auto) 88.1 % (38.0-78.0); Lymphocytes # (Auto) 0.6 K/mcL (1.5-4.8); Lymphocytes % (Auto) 3.9 % (15.5-49.0); Mean Cell Volume 97.1 fL (80.0-100.0); Mean Corpuscular HGB Conc 32.6 g/dL (31.0-36.0); Monocytes # (Auto) 1.2 K/mcL (0.1-0.9); Platelet Count 218 K/mcL (140-440); RBC 3.83 M/mcL (4.00-5.20); Red Cell Distribution Width 17.2 % (11.5-14.5)
[2018-11-28 07:07] LABS: ALT/SGPT 13 U/l (0-40); Albumin 2.5 gm/dL (3.2-5.2); Albumin/Globulin Ratio 0.7 (1.0-2.3); Alkaline Phosphatase 144 U/L (39-117); Bilirubin,Direct < 0.2 mg/dL (0.0-0.3); Blood Urea Nitrogen 16 mg/dl (8-23); Gamma Glutamyl Transpeptidase 13 U/L (5-36); Uric Acid 4.3 mg/dL (2.5-8.0)
[2018-11-28] MEDS ORDERED: PANTOPRAZOLE 40 MG TABLET PO SCH (07:30)
[2018-11-28] MEDS ORDERED: predniSONE 20 MG TABLET PO SCH (08:00)
[2018-11-28] MEDS: HEPARIN 5,000 UNIT/ML VIAL SQ SCH ×2 (08:20→21:21)
[2018-11-28] MEDS ORDERED: ASPIRIN 81 MG TAB.CHEW PO SCH (09:00)
[2018-11-28] MEDS ORDERED: CITALOPRAM 20 MG TABLET PO SCH (09:00)
[2018-11-28] MEDS ORDERED: AZITHROMYCIN 250 MG TABLET PO SCH (09:00)
[2018-11-28] MEDS ORDERED: MAGNESIUM SULFATE 2 GM/50 ML BAG IV ONE (09:00)
[2018-11-28] MEDS ORDERED: OSELTAMIVIR PHOSPHATE 30 MG PO SCH ×2 (09:00→21:00)
[2018-11-28] MEDS ORDERED: POTASSIUM PHOSPHATE 40 MEQ in DEXTROSE 5% IN WATER 500 ML IV ONE (10:00)
[2018-11-28] MEDS ORDERED: cefTRIAXone 1 GM VIAL IV SCH (11:00)
--- NOTE | 2018-11-28 11:49 | XRay Report ---
CLINICAL INFORMATION: pneumonia COMPARISON: 11/26/2018 FINDINGS: Moderate cardiomegaly is unchanged. Mediastinum and pulmonary vessels are normal. Right-sided infiltrate is better aerated on today's exam with mild patchy residual in the right mid and lower lung. Minor atelectasis in the left base. Small bilateral pleural effusions noted IMPRESSION: Moderate improvement in right lung infiltrate with only mild patchy residual in the mid and lower lung. Stable cardiomegaly Interpreted and Authenticated by: Gilberto Marin 11/28/18
--- NOTE | 2018-11-28 14:42 | Internal Med Progress Note ---
Medical - PN: Subj Patient information: Note initiated : 11/28/18 at 2:39 pm Service Date, if different from initiated Date: [] Patient: Syeda Salamanca a 68 y/o F admitted on 11/26/18 for sob, failure to thrive. Chief Complaint: [] Interval history: Ms. Salamanca is a 68 year old F with history of heavy alcohol use, presents to the hospital brought in by daughters for evaluation of shortness of breath. The patient was at baseline status approximately a week ago. On Wednesday she ate I believe she can also and had some vomiting. Since the Wednesday the patient has been having shortness of breath, cough with yellow sputum and fatigue. The patient denies any fever but has had some chills. The patient has had progre ssive decline in her respiratory condition. Yesterday she was noted by her daughter to be hallucinating. The patient's last drink was on Wednesday. The patient has history of heavy alcohol use, drinks 4-5 beers a day, and has a history of withdrawal when not using alcohol. This morning the family found the patient was in respiratory distress, lips and face turning blue and therefore she was brought to the hospital for further management. The patient denies any other acute complaints or concerns. In the emergency room on presentation patient was afebrile temperature 97, heart rate 71 blood pressure 97/87 and she was breathing 32 breaths/min O2 saturation 71 on 15 L of oxygen. Chest x-ray showed right lobar pneumonia, EKG shows sinus rhythm incomplete right very much block Labs show WBC count of 6.9 hemoglobin 14 platelets 167 lactic acid 1.2 sodium 131 potassium 2.9 bicarbonate 29 creatinine 1.4 glucose 95 albumin 2.8 UA was pending ABG done shows pH of 7.43 PCO2 53 PO2 82 on 15 L of oxygen. Patient was given bronchodilators, IV antibiotics and blood cultures were sent patient's condition improved however she still needs 5-6 L of oxygen to maintain her respiratory status. She is being admitted to the hospital for further management The patient is usually a resident of [place], her February this year and her daughters brought her to live with them. I believe the daughter lives in [place] and she has 1 daughter here in the [place]. They were here to visit but her condition acutely worsened and therefore she came to this facility. There are no previous records in this hospital. 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 The patient does wish to be full code 11/27 Patient seen and examined, no acute overnight events. Has a low-grade temperature still. Sputum culture is growing possible pneumococcus. Influenza test positive. Tamiflu added Patient is otherwise doing well stable respiratory needs. Does have some tremors, getting alcohol with meals 11/28 Patient seen and examined, no acute overnight events. Sputum culture is pneumococcus sensitive to penicillin. Patient is on Zosyn azithromycin and Tamiflu. We will discontinue azithromycin now, discontinue Zosyn Start the patient on Rocephin, pneumococcus sensitive to penicillins. Complete course of Tamiflu Patient is of oxygen, repeat chest x-ray this morning is showing improvement Transfer the patient to [facility]. Patient is still quite weak No signs of severe withdrawal Patient does complain about right earache or headache I did look inside the ear there was a lot of debris in there but I was not able to visualize eardrum, no pus or discharge was noted Pertinent ROS: present headache, dizziness Denies chest pain, palpitations improving cough and shortness of breath, some hemoptysis present, Denies abdominal pain, nausea or vomiting. - Constitutional Vitals: Vital Signs Temp Pulse Resp BP Pulse Ox 99 F 89 24 H 155/76 90 11/28/18 12:08 11/28/18 11:30 11/28/18 12:08 11/28/18 12:08 11/28/18 12:08 Period Temp Pulse Resp BP Sys/Bartlett Pulse Ox Last 24 Hr 98.6 F-99.7 F 81-91 16-32 130-160/67-88 89-100 Intake and Output 11/28/18 11/28/18 11/28/18 05:59 13:59 21:59 Intake Total 50 / 2399.0909 460 / 460 Output Total 375 / 800 250 / 250 Balance -325 / 1599.0909 210 / 210 Intake & Output: Intake & Output 11/28/18 11/28/18 11/28/18 05:59 13:59 21:59 Intake Total 50 / 2399.0909 460 / 460 Output Total 375 / 800 250 / 250 Balance -325 / 1599.0909 210 / 210 Intake: IV 50 / 709.0909 100 / 100 Zosyn 3.375 gm In Dextrose 5% 50 / 150 50 / 50 in Water 50 ml @ 100 mls/hr IV Q6H [facility] Rx#:[id number] Oral 360 / 360 Output: Urine Catheter Amount 375 / 800 250 / 250 Other: Urine Appearance Clear Uretheral (Ceron) Clear Urine Color Bright Yellow Uretheral (Ceron) Bright Yellow Exam: Constitutional; Afebrile, cooperative, alert, not in distress. Thin frail lady Eyes- No icterus, , No periorbital swelling Ears- Ext ear normal, hearing normal to conversation. Right ear evaluated debris noted no pus Neck- Midline trachea, supple Respiratory system: Air Entry equal on both sides, improved air entry compared to yesterday, no wheezing, mild inspiratory crackles at the bases CVS- Rate rhythm regular, S1,S2 heard, no gallop, no rub. Abdomen- Soft nontender abdomen, no organomegaly, no tenderness, no guarding or rigidity, CLOUD OPERATIONS ENGINEER- AOOx3, moving all extremities, no gross focal deficit noted. Medical - PN: Obj Da - Labs CBC & Chem 7: 11/28/18 03:50 11/28/18 03:50 Labs: Abnormal Lab Results 11/28/18 11/28/18 11/27/18 03:50 03:50 03:50 WBC 14.7 H RBC 3.83 L RDW 17.2 H Gran % 88.1 H Lymph % (Auto) 3.9 L Hale % (Auto) Gran # 12.9 H Lymph # (Auto) 0.6 L Hale # (Auto) 1.2 H POC Sodium Sodium POC Potassium Potassium POC Chloride Chloride 95 L POC BUN BUN 31 H Creatinine POC Creatinine Glucose 170 H 164 H Calcium 8.4 L 8.1 L POC WB Ioniz Calcium Phosphorus 1.3 L 1.7 L Alkaline Phosphatase 144 H Lactate Dehydrogenase 306 H Total Protein 5.8 L Albumin 2.5 L 2.3 L Globulin Albumin/Globulin Ratio 0.7 L 0.7 L Urine Protein Urine Occult Blood Urine RBC Amorphous Crystals Granular Casts 11/27/18 11/26/18 11/26/18 03:50 15:46 14:19 WBC RBC 3.82 L RDW 16.6 H Gran % 89.5 H Lymph % (Auto) 4.3 L Hale % (Auto) Gran # Lymph # (Auto) 0.3 L Hale # (Auto) POC Sodium 130 L Sodium 131 L POC Potassium 2.7 L* Potassium 2.9 L* POC Chloride 88 L Chloride 88 L POC BUN 43 H BUN 52 H Creatinine 1.4 H POC Creatinine 1.6 H Glucose Calcium POC WB Ioniz Calcium 1.12 L Phosphorus Alkaline Phosphatase Lactate Dehydrogenase Total Protein Albumin 2.8 L Globulin 4.1 H Albumin/Globulin Ratio 0.7 L Urine Protein 30 A Urine Occult Blood 0.2 A Urine RBC 6 H Amorphous Crystals Few A Granular Casts 3 H 11/26/18 14:19 WBC RBC RDW 16.4 H Gran % Lymph % (Auto) 8.2 L Hale % (Auto) 22.2 H Gran # Lymph # (Auto) 0.6 L Hale # (Auto) 1.5 H POC Sodium Sodium POC Potassium Potassium POC Chloride Chloride POC BUN BUN Creatinine POC Creatinine Glucose Calcium POC WB Ioniz Calcium Phosphorus Alkaline Phosphatase Lactate Dehydrogenase Total Protein Albumin Globulin Albumin/Globulin Ratio Urine Protein Urine Occult Blood Urine RBC Amorphous Crystals Granular Casts Meds: Medications Acetaminophen (Tylenol) 650 mg PO Q4-6HP PRN PRN Reason: PAIN/FEVER > 101 Last Admin: 11/28/18 10:51 Dose: 650 mg Documented by: Albuterol/Ipratropium (Duoneb) 3 ml NEB Q4HRT [facility] Last Admin: 11/28/18 11:23 Dose: 3 ml Documented by: Aspirin (Aspirin) 81 mg PO DAILY [facility] Last Admin: 11/28/18 08:21 Dose: 81 mg Documented by: Azithromycin (Zithromax) 250 mg PO DAILY [facility] Stop: 11/29/18 09:01 Last Admin: 11/28/18 08:21 Dose: 250 mg Documented by: Ceftriaxone Sodium (Rocephin) 1 gm IV DAILY [facility] Last Admin: 11/28/18 11:34 Dose: 1 gm Documented by: Citalopram Hydrobromide (Celexa) 20 mg PO DAILY [facility] Last Admin: 11/28/18 08:21 Dose: 20 mg Documented by: Heparin Sodium (Porcine) (Heparin) 5,000 unit SQ Q12 [facility] Last Admin: 11/28/18 08:20 Dose: 5,000 unit Documented by: Hydromorphone HCl (Dilaudid) 0.5 mg IV Q2HP PRN PRN Reason: PAIN LEVEL > 6 Multivit/Ca Carb/B Cmplx/FA/Prenat (Diatx) 1 tab PO [facility] Last Admin: 11/27/18 20:47 Dose: 1 tab Documented by: Naloxone HCl (Narcan) 0.1 mg IV Q2MIN PRN PRN Reason: Opiate Reversal Oseltamivir Phosphate 30 Mg Oral Solution 1 dose PO BID [facility] Ondansetron HCl (Zofran) 4 mg IV Q4-6HP PRN PRN Reason: Nausea And Vomiting Pantoprazole Sodium (Protonix) 40 mg PO [facility] Last Admin: 11/28/18 08:15 Dose: 40 mg Documented by: Mirabegron [ Myrbetriq] 25 Mg Tablet 1 dose PO DAILY [facility] Last Admin: 11/28/18 08:19 Dose: 1 dose Documented by: Prednisone (Prednisone) 40 mg PO [facility] Last Admin: 11/28/18 08:15 Dose: 40 mg Documented by: Sodium Chloride (Saline Flush) 10 ml IV Q8 [facility] Last Admin: 11/28/18 10:28 Dose: 10 ml Documented by: Thiamine HCl (Vitamin B1) 100 mg PO [facility] Last Admin: 11/27/18 20:47 Dose: 100 mg Documented by: Medical - PN: A/P - Time Spent With Patient Total time spent is greater than 50% in coordination of care (as documented) at patient's floor/unit and/or counseling patient: - Narrative A/P Narrative: A/P Acute hypoxic/Hypercapenic Respiratory failure Pneumonia, Influenzae pneumonia Acute kidney injury Hypokalemia Malnutrition, albumin 2.8 Alcoholism GERD Depression Grief due to loss of Overactive bladder Seizure, Hypohphosphatemia Plan xfer to med surg Patient is off oxygen this morning On Rocephin and Tamiflu now Resume blood pressure medications when BP is more stable Replace phosphate and potassium Sepsis syndrome resolved Continue alcohol with meals to avoid alcohol withdrawal Encourage physical therapy Renal function back to normal DVT heparin subcu Regular diet Full code Medical - PN: Qual - VTE Deep Vein Thrombosis/Pulmonary Embolism Present on Admission: No
[2018-11-28] MEDS ORDERED: ONDANSETRON 4 MG/2 ML VIAL IV PRN (15:59)
[2018-11-28] MEDS ORDERED: HYDROmorphone 2 MG/ML VIAL IV PRN (15:59)
[2018-11-28] MEDS ORDERED: ACETAMINOPHEN 325 MG TABLET PO PRN (15:59)
[2018-11-28] MEDS ORDERED: NALOXONE HCL 0.4 MG/ML VIAL IV PRN (15:59)
[2018-11-28] MEDS: FOLIC ACID/VITAMIN B COMP W-C 1 TAB TABLET PO SCH (21:20)
[2018-11-28] MEDS: OSELTAMIVIR PHOSPHATE 30 MG PO SCH (21:21)
[2018-11-28] MEDS: THIAMINE 100 MG TABLET PO SCH (21:21)
[2018-11-29] MEDS: IPRATROPIUM/ALBUTEROL 3 ML AMPUL.NEB NEB SCH ×6 (03:13→22:57)
[2018-11-29 05:45] LABS: Basophils # (Auto) 0 K/mcL (0.0-0.3); Basophils % (Auto) 0.1 % (0.0-2.0); Eosinophils # (Auto) 0 K/mcL (0.0-0.7); Eosinophils % (Auto) 0 % (0.0-7.0); Granulocytes % (Auto) 83.2 % (38.0-78.0); Lymphocytes # (Auto) 1.4 K/mcL (1.5-4.8); Lymphocytes % (Auto) 8.7 % (15.5-49.0); Mean Cell Volume 95.4 fL (80.0-100.0); Mean Corpuscular HGB Conc 33.2 g/dL (31.0-36.0); Monocytes # (Auto) 1.3 K/mcL (0.1-0.9); Platelet Count 260 K/mcL (140-440); RBC 3.78 M/mcL (4.00-5.20); Red Cell Distribution Width 17.4 % (11.5-14.5)
[2018-11-29 06:19] LABS: ALT/SGPT 13 U/l (0-40); Albumin 2.3 gm/dL (3.2-5.2); Albumin/Globulin Ratio 0.7 (1.0-2.3); Alkaline Phosphatase 80 U/L (39-117); Bilirubin,Direct < 0.2 mg/dL (0.0-0.3); Blood Urea Nitrogen 9 mg/dl (8-23); Gamma Glutamyl Transpeptidase 12 U/L (5-36); Uric Acid 3.4 mg/dL (2.5-8.0)
[2018-11-29] MEDS: 0.9 % SODIUM CHLORIDE 10 ML SYRINGE IV SCH ×3 (07:31→20:33)
[2018-11-29] MEDS: PANTOPRAZOLE 40 MG TABLET PO SCH (07:31)
[2018-11-29] MEDS ORDERED: predniSONE 20 MG TABLET PO SCH (08:00)
[2018-11-29] MEDS ORDERED: MAGNESIUM SULFATE 2 GM/50 ML BAG IV ONE (08:18)
[2018-11-29] MEDS ORDERED: POTASSIUM PHOSPHATE 40 MEQ in DEXTROSE 5% IN WATER 500 ML IV ONE (08:18)
[2018-11-29] MEDS: HEPARIN 5,000 UNIT/ML VIAL SQ SCH ×2 (08:54→20:33)
[2018-11-29] MEDS: OSELTAMIVIR PHOSPHATE 30 MG PO SCH ×2 (08:54→20:32)
[2018-11-29] MEDS: ASPIRIN 81 MG TAB.CHEW PO SCH (08:54)
[2018-11-29] MEDS: CITALOPRAM 20 MG TABLET PO SCH (08:55)
[2018-11-29] MEDS ORDERED: cefTRIAXone 1 GM VIAL IV SCH ×2 (09:00→09:41)
[2018-11-29] MEDS: NYSTATIN 500,000 UNITS/5 ML ORAL.SUSP SSW SCH ×4 (09:42→20:35)
[2018-11-29] MEDS ORDERED: cefTRIAXone 1 GM VIAL IV ONE (10:00)
[2018-11-29] MEDS ORDERED: OSELTAMIVIR PHOSPHATE 75 MG CAPSULE PO SCH (14:18)
--- NOTE | 2018-11-29 14:20 | Internal Med Progress Note ---
Medical - PN: Subj Patient information: Note initiated : 11/29/18 at 2:17 pm Service Date, if different from initiated Date: [] Patient: Syeda Salamanca a 68 y/o F admitted on 11/26/18 for sob, failure to thrive. Chief Complaint: [] Interval history: Ms. Salamanca is a 68 year old F with history of heavy alcohol use, presents to the hospital brought in by daughters for evaluation of shortness of breath. The patient was at baseline status approximately a week ago. On Wednesday she ate I believe she can also and had some vomiting. Since the Wednesday the patient has been having shortness of breath, cough with yellow sputum and fatigue. The patient denies any fever but has had some chills. The patient has had progre ssive decline in her respiratory condition. Yesterday she was noted by her daughter to be hallucinating. The patient's last drink was on Wednesday. The patient has history of heavy alcohol use, drinks 4-5 beers a day, and has a history of withdrawal when not using alcohol. This morning the family found the patient was in respiratory distress, lips and face turning blue and therefore she was brought to the hospital for further management. The patient denies any other acute complaints or concerns. In the emergency room on presentation patient was afebrile temperature 97, heart rate 71 blood pressure 97/87 and she was breathing 32 breaths/min O2 saturation 71 on 15 L of oxygen. Chest x-ray showed right lobar pneumonia, EKG shows sinus rhythm incomplete right very much block Labs show WBC count of 6.9 hemoglobin 14 platelets 167 lactic acid 1.2 sodium 131 potassium 2.9 bicarbonate 29 creatinine 1.4 glucose 95 albumin 2.8 UA was pending ABG done shows pH of 7.43 PCO2 53 PO2 82 on 15 L of oxygen. Patient was given bronchodilators, IV antibiotics and blood cultures were sent patient's condition improved however she still needs 5-6 L of oxygen to maintain her respiratory status. She is being admitted to the hospital for further management The patient is usually a resident of [place], her February this year and her daughters brought her to live with them. I believe the daughter lives in [place] and she has 1 daughter here in the [place]. They were here to visit but her condition acutely worsened and therefore she came to this facility. There are no previous records in this hospital. 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 The patient does wish to be full code 11/27 Patient seen and examined, no acute overnight events. Has a low-grade temperature still. Sputum culture is growing possible pneumococcus. Influenza test positive. Tamiflu added Patient is otherwise doing well stable respiratory needs. Does have some tremors, getting alcohol with meals 11/28 Patient seen and examined, no acute overnight events. Sputum culture is pneumococcus sensitive to penicillin. Patient is on Zosyn azithromycin and Tamiflu. We will discontinue azithromycin now, discontinue Zosyn Start the patient on Rocephin, pneumococcus sensitive to penicillins. Complete course of Tamiflu Patient is of oxygen, repeat chest x-ray this morning is showing improvement Transfer the patient to [facility]. Patient is still quite weak No signs of severe withdrawal Patient does complain about right earache or headache I did look inside the ear there was a lot of debris in there but I was not able to visualize eardrum, no pus or discharge was noted 11/29 Patient seen examined, no acute overnight issues, still has cough with some hemoptysis, but now is on room air, labs are stable, low phos to be replaced no e/o withdrawal, but pt is weak and fatigued. Pertinent ROS: cough and shortness of breath present, improving she is still quite fatigued no fever or chills no abdominal pain, nausea or vomiting no chest pain. - Constitutional Vitals: Vital Signs Temp Pulse Resp BP Pulse Ox 97.7 F 90 30 H 158/90 89 L 11/29/18 12:00 11/29/18 12:00 11/29/18 12:00 11/29/18 12:00 11/29/18 12:00 Period Temp Pulse Resp BP Sys/Bartlett Pulse Ox Last 24 Hr 97.6 F-98.9 F 80-110 14-32 141-158/76-95 89-95 Intake and Output 11/29/18 11/29/18 11/29/18 05:59 13:59 21:59 Intake Total 270 / 1239.0909 440 / 440 Balance 270 / 289.0909 440 / 440 Intake & Output: Intake & Output 11/29/18 11/29/1819 05:59 13:59 21:59 Intake Total 270 / 1239.0909 440 / 440 Balance 270 / 289.0909 440 / 440 Intake: Oral 270 / 630 440 / 440 Other: Meal Breakfast Percent of Meal Consumed 25% Feeding Ability Independent Stool Size Small Stool Color Brown Stool Consistency Liquid Liquid Loose Loose # Voids 1 1 # Bowel Movements 1 1 Exam: Constitutional; Afebrile, cooperative, alert, not in distress. Respiratory system: Air Entry equal on both sides, No crackles or wheezing, no rhonchi. CVS- Rate rhythm regular, S1,S2 heard, no gallop, no rub. Abdomen- Soft nontender abdomen, no organomegaly, no tenderness, no guarding or rigidity, [employer]- AOOx3, moving all extremities, no gross focal deficit noted. Medical - PN: Obj Da - Labs CBC & Chem 7: 11/29/18 04:39 11/29/18 04:39 Labs: Abnormal Lab Results 11/29/18 11/29/18 11/28/18 04:39 04:39 03:50 WBC 15.9 H RBC 3.78 L RDW 17.4 H Gran % 83.2 H Lymph % (Auto) 8.7 L [place] % (Auto) Gran # 13.3 H Lymph # (Auto) 1.4 L [place] # (Auto) 1.3 H POC Sodium Sodium 131 L POC Potassium Potassium POC Chloride Chloride 91 L 95 L Carbon Dioxide 31 H POC BUN BUN Creatinine POC Creatinine Glucose 170 H Calcium 8.2 L 8.4 L POC WB Ioniz Calcium Phosphorus 1.7 L 1.3 L Alkaline Phosphatase 144 H Lactate Dehydrogenase 306 H Total Protein 5.7 L Albumin 2.3 L 2.5 L Globulin Albumin/Globulin Ratio 0.7 L 0.7 L Urine Protein Urine Occult Blood Urine RBC Amorphous Crystals Granular Casts 11/28/18 11/27/18 11/27/18 03:50 03:50 03:50 WBC 14.7 H RBC 3.83 L 3.82 L RDW 17.2 H 16.6 H Gran % 88.1 H 89.5 H Lymph % (Auto) 3.9 L 4.3 L [place] % (Auto) Gran # 12.9 H Lymph # (Auto) 0.6 L 0.3 L [place] # (Auto) 1.2 H POC Sodium Sodium POC Potassium Potassium POC Chloride Chloride Carbon Dioxide POC BUN BUN 31 H Creatinine POC Creatinine Glucose 164 H Calcium 8.1 L POC WB Ioniz Calcium Phosphorus 1.7 L Alkaline Phosphatase Lactate Dehydrogenase Total Protein 5.8 L Albumin 2.3 L Globulin Albumin/Globulin Ratio 0.7 L Urine Protein Urine Occult Blood Urine RBC Amorphous Crystals Granular Casts 11/26/18 11/26/18 11/26/18 15:46 14:19 14:19 WBC RBC RDW 16.4 H Gran % Lymph % (Auto) 8.2 L [place] % (Auto) 22.2 H Gran # Lymph # (Auto) 0.6 L [place] # (Auto) 1.5 H POC Sodium 130 L Sodium 131 L POC Potassium 2.7 L* Potassium 2.9 L* POC Chloride 88 L Chloride 88 L Carbon Dioxide POC BUN 43 H BUN 52 H Creatinine 1.4 H POC Creatinine 1.6 H Glucose Calcium POC WB Ioniz Calcium 1.12 L Phosphorus Alkaline Phosphatase Lactate Dehydrogenase Total Protein Albumin 2.8 L Globulin 4.1 H Albumin/Globulin Ratio 0.7 L Urine Protein 30 A Urine Occult Blood 0.2 A Urine RBC 6 H Amorphous Crystals Few A Granular Casts 3 H Meds: Medications Acetaminophen (Tylenol) 650 mg PO Q4-6HP PRN PRN Reason: PAIN/FEVER > 101 Albuterol/Ipratropium (Duoneb) 3 ml NEB Q4HRT [facility] Last Admin: 11/29/18 10:52 Dose: 3 ml Documented by: Aspirin (Aspirin) 81 mg PO DAILY [facility] Last Admin: 11/29/18 08:54 Dose: 81 mg Documented by: Citalopram Hydrobromide (Celexa) 20 mg PO DAILY [facility] Last Admin: 11/29/18 08:55 Dose: 20 mg Documented by: Heparin Sodium (Porcine) (Heparin) 5,000 unit SQ Q12 [facility] Last Admin: 11/29/18 08:54 Dose: 5,000 unit Documented by: Hydromorphone HCl (Dilaudid) 0.5 mg IV Q2HP PRN PRN Reason: PAIN LEVEL > 6 Ceftriaxone Sodium 2 gm/ (Dextrose) 50 mls @ 100 mls/hr IV Q24H [facility] Multivit/Ca Carb/B Cmplx/FA/Prenat (Diatx) 1 tab PO HS [facility] Last Admin: 11/28/18 21:20 Dose: 1 tab Documented by: Naloxone HCl (Narcan) 0.1 mg IV Q2MIN PRN PRN Reason: Opiate Reversal Oseltamivir Phosphate 30 Mg Oral Solution 1 dose PO BID [facility] Last Admin: 11/29/18 08:54 Dose: 1 dose Documented by: Nystatin (Nystatin) 500,000 units SSW QID [facility] Last Admin: 11/29/18 13:28 Dose: 500,000 units Documented by: Ondansetron HCl (Zofran) 4 mg IV Q4-6HP PRN PRN Reason: Nausea And Vomiting [facility]oprazole [facility] Admin: 11/29/18 07:31 Dose: 40 mg Documented by: Mirabegron [ Myrbetriq] 25 Mg Tablet 1 dose PO DAILY [facility] Last Admin: 11/29/18 08:55 Dose: 1 dose Documented by: Prednisone (Prednisone) 20 mg PO [facility] Sodium Chloride (Saline Flush) 10 ml IV Q8 [facility] Last Admin: 11/29/18 13:28 Dose: 10 ml Documented by: Thiamine HCl (Vitamin B1) 100 mg PO HS [facility] Last Admin: 11/28/18 21:21 Dose: 100 mg Documented by: Medical - PN: A/P - Time Spent With Patient Total time spent is greater than 50% in coordination of care (as documented) at patient's floor/unit and/or counseling patient: - Narrative A/P Narrative: A/P Acute hypoxic/Hypercapenic Respiratory failure Pneumonia, Influenzae pneumonia Acute kidney injury Hypokalemia Malnutrition, albumin 2.8 Alcoholism GERD Depression Grief due to loss of Overactive bladder Seizure, Hypohphosphatemia Plan xfer to med surg Patient is off oxygen , continue pulmonary toilet. On Rocephin and Tamiflu now Resume blood pressure medications when BP is more stable Replace phosphate and potassium aggressively Sepsis syndrome resolved Continue alcohol with meals to avoid alcohol withdrawal Encourage physical therapy Renal function back to normal DVT heparin subcu Regular diet Full code anticipate d/c to SNF in AM if remains stable. Medical - PN: Qual - VTE Deep Vein Thrombosis/Pulmonary Embolism Present on Admission: No
[2018-11-29] MEDS: THIAMINE 100 MG TABLET PO SCH (20:31)
[2018-11-29] MEDS: FOLIC ACID/VITAMIN B COMP W-C 1 TAB TABLET PO SCH (20:31)
[2018-11-30] MEDS: IPRATROPIUM/ALBUTEROL 3 ML AMPUL.NEB NEB SCH ×4 (03:46→21:22)
[2018-11-30 05:39] LABS: Basophils # (Auto) 0 K/mcL (0.0-0.3); Basophils % (Auto) 0.1 % (0.0-2.0); Eosinophils # (Auto) 0 K/mcL (0.0-0.7); Eosinophils % (Auto) 0.3 % (0.0-7.0); Granulocytes % (Auto) 82.7 % (38.0-78.0); Lymphocytes # (Auto) 1.5 K/mcL (1.5-4.8); Lymphocytes % (Auto) 12.8 % (15.5-49.0); Mean Cell Volume 95.8 fL (80.0-100.0); Monocytes # (Auto) 0.5 K/mcL (0.1-0.9); Monocytes % (Auto) 4.1 % (1.0-12.0); Platelet Count 299 K/mcL (140-440); RBC 4.01 M/mcL (4.00-5.20); Red Cell Distribution Width 17.2 % (11.5-14.5)
[2018-11-30 06:10] LABS: ALT/SGPT 14 U/l (0-40); Albumin 2.5 gm/dL (3.2-5.2); Albumin/Globulin Ratio 0.7 (1.0-2.3); Alkaline Phosphatase 72 U/L (39-117); Bilirubin,Direct < 0.2 mg/dL (0.0-0.3); Blood Urea Nitrogen 8 mg/dl (8-23); Gamma Glutamyl Transpeptidase 14 U/L (5-36); Uric Acid 3.6 mg/dL (2.5-8.0)
--- NOTE | 2018-11-30 06:52 | XRay Report ---
CLINICAL INFORMATION: pna COMPARISON: 11/28/2018 FINDINGS: Moderate cardiomegaly is unchanged. Mediastinum and pulmonary vessels are normal. Right basilar infiltrate continues to improve with small patchy vague residual. Mild left basilar atelectasis noted. No definite effusion IMPRESSION: Continued improvement in right basilar infiltrate - now small. Interpreted and Authenticated by: Gilberto Marin 11/30/18
[2018-11-30] MEDS: PANTOPRAZOLE 40 MG TABLET PO SCH (07:38)
[2018-11-30] MEDS: 0.9 % SODIUM CHLORIDE 10 ML SYRINGE IV SCH ×3 (07:40→23:48)
[2018-11-30] MEDS: CITALOPRAM 20 MG TABLET PO SCH (08:19)
[2018-11-30] MEDS: cefTRIAXone 2 GM in DEXTROSE 5% IN WATER 50 ML IV SCH (08:19)
[2018-11-30] MEDS: predniSONE 20 MG TABLET PO SCH (08:20)
[2018-11-30] MEDS: HEPARIN 5,000 UNIT/ML VIAL SQ SCH ×2 (08:20→20:49)
[2018-11-30] MEDS: ASPIRIN 81 MG TAB.CHEW PO SCH (08:26)
[2018-11-30] MEDS ORDERED: 0.9 % SODIUM CHLORIDE 1,000 ML IV SCH (09:15)
[2018-11-30] MEDS: OSELTAMIVIR PHOSPHATE 30 MG PO SCH ×2 (10:42→20:49)
[2018-11-30] MEDS: NYSTATIN 500,000 UNITS/5 ML ORAL.SUSP SSW SCH ×4 (10:42→20:49)
--- NOTE | 2018-11-30 13:32 | Discharge Summary ---
Medical - DS: Prov Patient information: Note initiated : 11/30/18 at 1:26 pm Service Date, if different from initiated Date: [] Patient: Syeda Salamanca 68 y/o F admitted on 11/26/18 for sob, failure to thrive. Chief Complaint: [] Date of admission: 11/26/18 18:15 Discharge date: 12/01/18 Consults: 11/26/18 Consult to Physician [CONS] Stat Comment: Consulting Provider: Gale Little Reason For Exam: Physician to Consult Medical - DS: Meds - Discharge Medications Prescriptions: Cefdinir 300 mg PO BID #4 cap Active and Home Medications: Home Medications Aspirin [Phill Chewable Aspirin] 81 mg PO DAILY 11/26/18 [History Confirmed 11/26/18 Last Taken 11/26/18 08:00] Black Cohosh 40 mg PO DAILY 11/26/18 [History Confirmed 11/26/18 Last Taken 11/26/18 08:00] Citalopram [Celexa] 20 mg PO DAILY 11/26/18 [History Confirmed 11/26/18 Last Taken 11/26/18 08:00] Lisinopril [Zestril] 40 mg PO DAILY 11/26/18 [History Confirmed 11/26/18 Last Taken 11/26/18 08:00] Metoprolol Tartrate [Lopressor] 50 mg PO BID 11/26/18 [History Confirmed 11/26/18 Last Taken 11/26/18 08:00] Mirabegron [Myrbetriq] 25 mg PO DAILY 11/26/18 [History Confirmed 11/26/18 Last Taken 11/26/18 08:00] Ranitidine HCl [Acid [employer] Member] 150 mg PO BID 11/26/18 [History Confirmed 11/26/18 Last Taken 11/26/18 08:00] Medical - DS: Hosp Hospital course: Ms. Salamanca is a 68 year old F with history of heavy alcohol use, presents to the hospital brought in by daughters for evaluation of shortness of breath. The patient was at baseline status approximately a week ago. On Wednesday she ate I believe she can also and had some vomiting. Since the Wednesday the patient has been having shortness of breath, cough with yellow sputum and fatigue. The patient denies any fever but has had some chills. The patient has had progressive decline in her respiratory condition. Yesterday she was noted by her daughter to be hallucinating. The patient's last drink was on Wednesday. The patient has history of heavy alcohol use, drinks 4-5 beers a day, and has a history of withdrawal when not using alcohol. This morning the family found the patient was in respiratory distress, lips and face turning blue and therefore she was brought to the hospital for further management. The patient denies any other acute complaints or concerns. In the emergency room on presentation patient was afebrile temperature 97, heart rate 71 blood pressure 97/87 and she was breathing 32 breaths/min O2 saturation 71 on 15 L of oxygen. Chest x-ray showed right lobar pneumonia, EKG shows sinus rhythm incomplete right very much block Labs show WBC count of 6.9 hemoglobin 14 platelets 167 lactic acid 1.2 sodium 131 potassium 2.9 bicarbonate 29 creatinine 1.4 glucose 95 albumin 2.8 UA was pending ABG done shows pH of 7.43 PCO2 53 PO2 82 on 15 L of oxygen. Patient was given bronchodilators, IV antibiotics and blood cultures were sent patient's condition improved however she still needs 5-6 L of oxygen to maintain her respiratory status. She is being admitted to the hospital for further management The patient is usually a resident of [place], her February this year and her daughters brought her to live with them. I believe the daughter lives in [place] and she has 1 daughter here in the [place]. They were here to visit but her condition acutely worsened and therefore she came to this facility. There are no previous records in this hospital. 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 The patient does wish to be full code 11/27 Patient seen and examined, no acute overnight events. Has a low-grade tempera ture still. Sputum culture is growing possible pneumococcus. Influenza test positive. Tamiflu added Patient is otherwise doing well stable respiratory needs. Does have some tremors, getting alcohol with meals 11/28 Patient seen and examined, no acute overnight events. Sputum culture is pneumococcus sensitive to penicillin. Patient is on Zosyn azithromycin and Tamiflu. We will discontinue azithromycin now, discontinue Zosyn Start the patient on Rocephin, pneumococcus sensitive to penicillins. Complete course of Tamiflu Patient is of oxygen, repeat chest x-ray this morning is showing improvement Transfer the patient to [facility]. Patient is still quite weak No signs of severe withdrawal Patient does complain about right earache or headache I did look inside the ear there was a lot of debris in there but I was not able to visualize eardrum, no pus or discharge was noted 11/29 Patient seen examined, no acute overnight issues, still has cough with some hemoptysis, but now is on room air, labs are stable, low phos to be replaced no e/o withdrawal, but pt is weak and fatigued. 11/30 Patient seen examined, no acute ovenrigh events sodium level dropped a bit, Pt saturating 89-91% on room air still quite weak IV saline 1 L today. Discharge diagnosis: Acute hypoxic hypercapnic respiratory failure pneumonia influenza AK I maln Secondary discharge diagnosis: Depression GERD alcoholism seizure history - Time Spent with Patient Total time spent providing and/or coordinating discharge services: Greater than 30 minutes Medical - DS: Exam - Constitutional Vitals: Vital Signs Temp Pulse Pulse Resp BP BP Pulse Ox 11/30/18 12:00 98.5 F 84 18 145/76 89 L 11/30/18 08:00 98.6 F 80 18 151/79 89 L 11/30/18 03:56 72 24 H 11/30/18 03:49 77 18 11/30/18 03:30 98.1 F 77 18 172/94 89 L 11/29/18 23:00 70 16 89 L 11/29/18 19:06 98.2 F 87 24 H 174/92 90 11/29/18 15:32 84 16 11/29/18 15:26 97.5 F 83 22 142/70 92 Intake and Output 11/29/18 11/30/18 11/30/18 21:59 05:59 13:59 Intake Total 600 / 1240 200 / 1240 50 / 50 Balance 600 / 1240 200 / 1240 50 / 50 Intake: IV 50 / 50 Rocephin 2 gm In Dextrose 5% in 50 / 50 Water 50 ml @ 100 mls/hr IV Q24H [facility] Rx#:[id number] Oral 600 / 1240 200 / 1240 Other: Meal Dinner Percent of Meal Consumed 4 bites Feeding Ability Independent # Voids 1 Weight 40.37 kg Medical - DS: Data Labs on day of discharge: Labs from last 24 hours 11/30/18 11/30/18 04:42 04:42 WBC 12.1 H RBC 4.01 Hgb 12.7 Hct 38.4 MCV 95.8 MCH 31.7 MCHC 33.0 RDW 17.2 H Plt Count 299 MPV 8.4 Gran % 82.7 H Lymph % (Auto) 12.8 L [place] % (Auto) 4.1 Eos % (Auto) 0.3 Baso % (Auto) 0.1 Gran # 10.0 H Lymph # (Auto) 1.5 [place] # (Auto) 0.5 Eos # (Auto) 0 Baso # (Auto) 0 Sodium 129 L Potassium 4.1 Chloride 87 L Carbon Dioxide 33 H Anion Gap 9.0 BUN 8 Creatinine 0.7 GFR Calculation 88 Glucose 68 L Uric Acid 3.6 Calcium 8.4 L Phosphorus 2.8 Magnesium 1.7 Total Bilirubin 0.3 Direct Bilirubin < 0.2 GGT 14 AST 24 ALT 14 Alkaline Phosphatase 72 Lactate Dehydrogenase 256 H Total Protein 5.9 Albumin 2.5 L Globulin 3.4 Albumin/Globulin Ratio 0.7 L Triglycerides 71 Preliminary micro results at discharge 11/26/18 14:10 Blood Culture - Preliminary Blood 11/26/18 14:14 Blood Culture - Preliminary Blood Medical - DS: A/P - Patient/Caregiver Discharge Instructions Activity: increase activity as tolerated Diet: Dysphagia Pureed Prescriptions: Cefdinir 300 mg PO BID #4 cap - Follow up Plan Disposition: Home, Self-Care Prognosis: Fair Rehab Potential: Fair Medical - DS: Qual - VTE Deep Vein Thrombosis/Pulmonary Embolism Present on Admission: No
--- NOTE | 2018-11-30 14:44 | Internal Med Progress Note ---
Medical - PN: Subj Patient information: Note initiated : 11/30/18 at 2:42 pm Service Date, if different from initiated Date: [] Patient: Syeda Salamanca a 68 y/o F admitted on 11/26/18 for sob, failure to thrive. Chief Complaint: [] Interval history: Ms. Salamanca is a 68 year old F with history of heavy alcohol use, presents to the hospital brought in by daughters for evaluation of shortness of breath. The patient was at baseline status approximately a week ago. On Wednesday she ate I believe she can also and had some vomiting. Since the Wednesday the patient has been having shortness of breath, cough with yellow sputum and fatigue. The patient denies any fever but has had some chills. The patient has had progre ssive decline in her respiratory condition. Yesterday she was noted by her daughter to be hallucinating. The patient's last drink was on Wednesday. The patient has history of heavy alcohol use, drinks 4-5 beers a day, and has a history of withdrawal when not using alcohol. This morning the family found the patient was in respiratory distress, lips and face turning blue and therefore she was brought to the hospital for further management. The patient denies any other acute complaints or concerns. In the emergency room on presentation patient was afebrile temperature 97, heart rate 71 blood pressure 97/87 and she was breathing 32 breaths/min O2 saturation 71 on 15 L of oxygen. Chest x-ray showed right lobar pneumonia, EKG shows sinus rhythm incomplete right very much block Labs show WBC count of 6.9 hemoglobin 14 platelets 167 lactic acid 1.2 sodium 131 potassium 2.9 bicarbonate 29 creatinine 1.4 glucose 95 albumin 2.8 UA was pending ABG done shows pH of 7.43 PCO2 53 PO2 82 on 15 L of oxygen. Patient was given bronchodilators, IV antibiotics and blood cultures were sent patient's condition improved however she still needs 5-6 L of oxygen to maintain her respiratory status. She is being admitted to the hospital for further management The patient is usually a resident of [place], her February this year and her daughters brought her to live with them. I believe the daughter lives in [place] and she has 1 daughter here in [place]. They were here to visit but her condition acutely worsened and therefore she came to this facility. There are no previous records in this hospital. 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 The patient does wish to be full code 11/27 Patient seen and examined, no acute overnight events. Has a low-grade temperature still. Sputum culture is growing possible pneumococcus. Influenza test positive. Tamiflu added Patient is otherwise doing well stable respiratory needs. Does have some tremors, getting alcohol with meals 11/28 Patient seen and examined, no acute overnight events. Sputum culture is pneumococcus sensitive to penicillin. Patient is on Zosyn azithromycin and Tamiflu. We will discontinue azithromycin now, discontinue Zosyn Start the patient on Rocephin, pneumococcus sensitive to penicillins. Complete course of Tamiflu Patient is of oxygen, repeat chest x-ray this morning is showing improvement Transfer the patient to [facility]. Patient is still quite weak No signs of severe withdrawal Patient does complain about right earache or headache I did look inside the ear there was a lot of debris in there but I was not able to visualize eardrum, no pus or discharge was noted 11/29 Patient seen examined, no acute overnight issues, still has cough with some hemoptysis, but now is on room air, labs are stable, low phos to be replaced no e/o withdrawal, but pt is weak and fatigued. 11/30 Patient seen examined, no acute ovenrigh events sodium level dropped a bit, Pt saturating 89-91% on room air still quite weak IV saline 1 L today. Pertinent ROS: Denies headache, dizziness Denies chest pain, palpitations improving cough and sob Denies abdominal pain, nausea or vomiting. - Constitutional Vitals: Vital Signs Temp Pulse Resp BP Pulse Ox 98.5 F 84 18 145/76 89 L 11/30/18 12:00 11/30/18 12:00 11/30/18 12:00 11/30/18 12:00 11/30/18 12:00 Period Temp Pulse Resp BP Sys/Bartlett Pulse Ox Last 24 Hr 97.5 F-98.6 F 70-87 16-24 142-174/70-94 89-92 Intake and Output 11/30/18 11/30/18 11/30/18 05:59 13:59 21:59 Intake Total 200 / 1240 50 / 50 Balance 200 / 1240 50 / 50 Intake & Output: Intake & Output 11/30/18 11/30/18 11/30/18 05:59 13:59 21:59 Intake Total 200 / 1240 50 / 50 Balance 200 / 1240 50 / 50 Intake: IV 50 / 50 Rocephin 2 gm In Dextrose 5% in 50 / 50 Water 50 ml @ 100 mls/hr IV Q24H [facility] Rx#:[id number] Oral 200 / 1240 Exam: Constitutional; Afebrile, cooperative, alert, not in distress. Respiratory system: Air Entry equal on both sides, No crackles or wheezing, no rhonchi. mild quentin inspiratory crackles at bases CVS- Rate rhythm regular, S1,S2 heard, no gallop, no rub. Abdomen- Soft nontender abdomen, no organomegaly, no tenderness, no guarding or rigidity, [employer]ER- AOOx3, moving all extremities, no gross focal deficit noted. Medical - PN: Obj Da - Labs CBC & Chem 7: 11/30/18 04:42 11/30/18 04:42 Labs: Abnormal Lab Results 11/30/18 11/30/18 11/29/18 04:42 04:42 04:39 WBC 12.1 H RBC RDW 17.2 H Gran % 82.7 H Lymph % (Auto) 12.8 L Gran # 10.0 H Lymph # (Auto) Tompkins # (Auto) Sodium 129 L 131 L Chloride 87 L 91 L Carbon Dioxide 33 H 31 H Glucose 68 L Calcium 8.4 L 8.2 L Phosphorus 1.7 L Alkaline Phosphatase Lactate Dehydrogenase 256 H Total Protein 5.7 L Albumin 2.5 L 2.3 L Albumin/Globulin Ratio 0.7 L 0.7 L 11/29/18 11/28/18 11/28/18 04:39 03:50 03:50 WBC 15.9 H 14.7 H RBC 3.78 L 3.83 L RDW 17.4 H 17.2 H Gran % 83.2 H 88.1 H Lymph % (Auto) 8.7 L 3.9 L Gran # 13.3 H 12.9 H Lymph # (Auto) 1.4 L 0.6 L Tompkins # (Auto) 1.3 H 1.2 H Sodium Chloride 95 L Carbon Dioxide Glucose 170 H Calcium 8.4 L Phosphorus 1.3 L Alkaline Phosphatase 144 H Lactate Dehydrogenase 306 H Total Protein Albumin 2.5 L Albumin/Globulin Ratio 0.7 L Meds: Medications Acetaminophen (Tylenol) 650 mg PO Q4-6HP PRN PRN Reason: PAIN/FEVER > 101 Last Admin: 11/30/18 11:00 Dose: 650 mg Documented by: Albuterol/Ipratropium (Duoneb) 3 ml NEB BID [facility] Aspirin (Aspirin) 81 mg PO DAILY [facility] Last Admin: 11/30/18 08:26 Dose: 81 mg Documented by: Citalopram Hydrobromide (Celexa) 20 mg PO DAILY [facility] Last Admin: 11/30/18 08:19 Dose: 20 mg Documented by: Heparin Sodium (Porcine) (Heparin) 5,000 unit SQ Q12 [facility] Last Admin: 11/30/18 08:20 Dose: 5,000 unit Documented by: Hydromorphone HCl (Dilaudid) 0.5 mg IV Q2HP PRN PRN Reason: PAIN LEVEL > 6 Ceftriaxone Sodium 2 gm/ (Dextrose) 50 mls @ 100 mls/hr IV Q24H [facility] Last Infusion: 11/30/18 09:50 Dose: Infused Documented by: Sodium Chloride (Sodium Chloride 0.9%) 1,000 mls @ 125 mls/hr IV .Q8H [facility] Stop: 11/30/18 17:14 Last Admin: 11/30/18 10:42 Dose: 125 mls/hr Documented by: Multivit/Ca Carb/B Cmplx/FA/Prenat (Diatx) 1 tab PO HS [facility] Last Admin: 11/29/18 20:31 Dose: 1 tab Documented by: Naloxone HCl (Narcan) 0.1 mg IV Q2MIN PRN PRN Reason: Opiate Reversal Oseltamivir Phosphate 30 Mg Oral Solution 1 dose PO BID [facility] Last Admin: 11/30/18 10:42 Dose: Not Given Documented by: Nystatin (Nystatin) 500,000 units SSW QID [facility] Last Admin: 11/30/18 13:41 Dose: Not Given Documented by: Ondansetron HCl (Zofran) 4 mg IV Q4-6HP PRN PRN Reason: Nausea And Vomiting Pantoprazole Sodium (Protonix) 40 mg PO QAMAC [facility] Last Admin: 11/30/18 07:38 Dose: 40 mg Documented by: Mirabegron [ Myrbetriq] 25 Mg Tablet 1 dose PO DAILY [facility] Last Admin: 11/30/18 08:19 Dose: 1 dose Documented by: Prednisone (Prednisone) 20 mg PO [facility] Last Admin: 11/30/18 08:20 Dose: 20 mg Documented by: Sodium Chloride (Saline Flush) 10 ml IV Q8 [facility] Last Admin: 11/30/18 07:40 Dose: 10 ml Documented by: Thiamine HCl (Vitamin B1) 100 mg PO [facility] Last Admin: 11/29/18 20:31 Dose: 100 mg Documented by: Medical - PN: A/P - Time Spent With Patient Total time spent is greater than 50% in coordination of care (as documented) at patient's floor/unit and/or counseling patient: - Narrative A/P Narrative: A/P Acute hypoxic/Hypercapenic Respiratory failure Pneumonia, Influenzae pneumonia Acute kidney injury Hypokalemia Malnutrition, albumin 2.8 Alcoholism GERD Depression Grief due to loss of Overactive bladder Seizure, Hypohphosphatemia Plan Patient is off oxygen , continue pulmonary toilet. On Rocephin and Tamiflu now Resume blood pressure medications when BP is more stable Replace phosphate and potassium aggressively Sepsis syndrome resolved Continue alcohol with meals to avoid alcohol withdrawal Encourage physical therapy Renal function back to normal anticipate d/c to snf vs home in AM DVT heparin subcu Regular diet Full code Medical - PN: Qual - VTE Deep Vein Thrombosis/Pulmonary Embolism Present on Admission: No
[2018-11-30] MEDS: FOLIC ACID/VITAMIN B COMP W-C 1 TAB TABLET PO SCH (20:49)
[2018-11-30] MEDS: THIAMINE 100 MG TABLET PO SCH (20:49)
[2018-12-01] MEDS: 0.9 % SODIUM CHLORIDE 10 ML SYRINGE IV SCH (05:37)
[2018-12-01 06:31] LABS: Basophils # (Auto) 0 K/mcL (0.0-0.3); Basophils % (Auto) 0.3 % (0.0-2.0); Eosinophils # (Auto) 0.1 K/mcL (0.0-0.7); Eosinophils % (Auto) 0.6 % (0.0-7.0); Granulocytes % (Auto) 73.9 % (38.0-78.0); Lymphocytes # (Auto) 2.1 K/mcL (1.5-4.8); Lymphocytes % (Auto) 19.7 % (15.5-49.0); Mean Cell Volume 96.3 fL (80.0-100.0); Mean Corpuscular HGB Conc 32.3 g/dL (31.0-36.0); Monocytes # (Auto) 0.6 K/mcL (0.1-0.9); Monocytes % (Auto) 5.5 % (1.0-12.0); Platelet Count 315 K/mcL (140-440); RBC 3.98 M/mcL (4.00-5.20); Red Cell Distribution Width 17.5 % (11.5-14.5)
[2018-12-01 07:12] LABS: ALT/SGPT 15 U/l (0-40); Albumin 2.4 gm/dL (3.2-5.2); Albumin/Globulin Ratio 0.7 (1.0-2.3); Alkaline Phosphatase 68 U/L (39-117); Bilirubin,Direct < 0.2 mg/dL (0.0-0.3); Blood Urea Nitrogen 8 mg/dl (8-23); Gamma Glutamyl Transpeptidase 18 U/L (5-36); Uric Acid 3.9 mg/dL (2.5-8.0)
[2018-12-01] MEDS: PANTOPRAZOLE 40 MG TABLET PO SCH (07:21)
[2018-12-01] MEDS: ASPIRIN 81 MG TAB.CHEW PO SCH (08:14)
[2018-12-01] MEDS: CITALOPRAM 20 MG TABLET PO SCH (08:14)
[2018-12-01] MEDS: HEPARIN 5,000 UNIT/ML VIAL SQ SCH (08:14)
[2018-12-01] MEDS: predniSONE 20 MG TABLET PO SCH (08:14)
[2018-12-01] MEDS: IPRATROPIUM/ALBUTEROL 3 ML AMPUL.NEB NEB SCH (09:55)
[2018-12-01] MEDS: OSELTAMIVIR PHOSPHATE 30 MG PO SCH (10:01)
[2018-12-01] MEDS: cefTRIAXone 2 GM in DEXTROSE 5% IN WATER 50 ML IV SCH (10:02)
[2018-12-01] MEDS: NYSTATIN 500,000 UNITS/5 ML ORAL.SUSP SSW SCH ×3 (12:11→12:12)
== END 2018-12-01 13:45 | disposition home or self-care (01) | DRG 189 ==
LOC: ED 13:26 → ICU 18:15 → MEDSUR 11-28 16:40
PROVIDERS: ADMIT Internal Medicine; ATTEND Internal Medicine